=== PATIENT | female | born 1990 | race Hispanic/Latino ===

== ENCOUNTER 2017-09-24 08:00 | Outpatient (CLI) | payer SELFPAY | END 2017-09-24 08:01 | disposition home or self-care (01) | LOC: BICULT 08:00 | PROVIDERS: ATTEND Family Medicine | DX: N64.4 Mastodynia (principal) ==

== ENCOUNTER 2019-04-09 00:09 | Emergency (ER) | payer BC, SELFPAY ==
[2019-04-09] MEDS ORDERED: Metoclopramide HCl 10 MG/2 ML VIAL ONE (00:54)
[2019-04-09] MEDS ORDERED: Ketorolac Tromethamine 30 MG/ML VIAL ONE (00:54)
[2019-04-09] MEDS ORDERED: diphenhydrAMINE 50 MG/ML VIAL ONE (00:54)
--- NOTE | 2019-04-09 08:18 | CT ---
CT HEAD NONCONTRAST: Date: 04/09/19 INDICATION: Headache, new onset. FINDINGS: No evidence of ventriculomegaly, mass effect, midline shift, or acute intracranial hemorrhage. There is mild mucosal prominence of the paranasal sinuses. IMPRESSION: No acute intracranial hemorrhage or mass effect. POS: NOEMY
== END 2019-04-09 03:04 | disposition home or self-care (01) ==
LOC: ERS 00:09
DX: R51 Headache (principal)
CPT/HCPCS: 70450; 96365; 96375; J1200; J1885; J2765

== ENCOUNTER 2022-08-11 20:52 | Emergency (ER) | payer BC ==
[2022-08-11 21:26] LABS: Bilirubin Negative (Negative); Blood, Urine Negative (Negative); Clarity Clear (Clear); Glucose, Urine (Dipstick) Normal (Negative); Ketone, Urine Negative (Negative); Leukocyte Negative Leu/uL (Negative); Nitrite Negative (Negative); Protein, Urine (Dipstick) Negative (Neg-Trace); Specific Gravity, Urine 1.008 (1.002-1.036); Urobilinogen Normal mg/dL (Less than 2)
[2022-08-11 21:28] LABS: Pregnancy Test - Urine (BHCG) Negative (Negative); Pregu Control Background? CLEAR/WHITE (CLR/WHITE); Pregu Control Bar Appear? YES (CONTROL BAR); Specific Gravity 1.008 (1.002-1.036)
[2022-08-11 21:55] LABS: Hemoglobin 10.9 g/dL (12.0-16.0); Mean Corpuscular HGB CONC 33.3 g/dL (32.0-36.0); Mean Corpuscular Hemoglobin 29.4 pg (27.0-31.0); Mean Corpuscular Volume 88.1 fl (78.0-98.0); RBC Distribution Width 12.8 % (11.5-14.5); Red Blood Cell (RBC) Count 3.72 mill/uL (4.20-5.40); White Blood Cell (WBC) Count 6.5 10x3/uL (4.8-10.8)
[2022-08-11 21:56] LABS: #Eosinphils 0.1 thou/uL (0.0-0.7); #Lymphocytes 2.7 thou/uL (1.20-3.40); #Monocytes 0.4 thou/uL (0.11-0.59); #Neutrophils 3.3 thou/uL (1.40-6.50); %Basophils 0.4 % (0.0-1.0); %Eosinophils 1.1 % (0.0-10.0); %Lymphocytes 41.4 % (21.0-51.0); %Monocytes 6.8 % (0.0-10.0); %Neutrophils 50.3 % (42.0-75.0); Mean Platelet Volume 8.4 fL (7.4-10.4); Platelet Count 221 10x3/uL (130-400)
[2022-08-11 22:15] LABS: ALT (SGPT) 11 U/L (8-55); AST (SGOT) 15 U/L (5-34); Albumin 4.2 g/dL (3.5-5.0); Alkaline Phosphatase 56 U/L (40-110); Anion Gap 11 mmol/L (10-20); BUN (Urea Nitrogen) 10 mg/dL (7.0-18.7); Bilirubin, Total 1.3 mg/dL (0.2-1.2); Calc. Creatinine Clearance 0 mL/min (70-130); Carbon Dioxide 24 mmol/L (22-29); Chloride 107 mmol/L (98-107); Estimated GFR 119; Glucose 97 mg/dL (70-105); Lipase 11 U/L (8-78); Potassium 3.7 mmol/L (3.5-5.1); Protein, Total 7.2 g/dL (6.0-8.3); Sodium 138 mmol/L (136-145)
[2022-08-11] MEDS ORDERED: Ketorolac Tromethamine 30 MG/ML VIAL ONE (23:14)
== END 2022-08-12 00:01 | disposition home or self-care (01) ==
LOC: ERS 20:52
DX: R10.10 Upper abdominal pain, unspecified (principal)
CPT/HCPCS: 76705; 80053; 81003; 81025; 83690; 85025; 96374; J1885

== ENCOUNTER 2022-12-25 08:38 | Emergency (ER) | payer BC, SELFPAY ==
[2022-12-25] MEDS ORDERED: Ketorolac Tromethamine 30 MG/ML VIAL ONE (09:27)
== END 2022-12-25 09:53 | disposition home or self-care (01) ==
LOC: ERS 08:38
DX: M54.50 Low back pain, unspecified (principal)
CPT/HCPCS: 72100; 96372; J1885

== ENCOUNTER → 2024-04-19 | Day surgery (SDC) | payer BC, SELFPAY ==
[~2024-04-19] MED LIST: Ferumoxytol (NON ERSD) 510 MG in Sodium Chloride 0.9% 250 ML 150 ML IVPB SCH
[2024-04-19] MEDS: Ferumoxytol (NON ERSD) 510 MG in 0.9 % Sodium Chloride 150 ML IVPB SCH (09:14)
[2024-04-19 11:05] VITALS: BP 90/55; TEMP 98.2
== END ==
LOC: ONC/OP 08:30
PROVIDERS: ATTEND Family Medicine
DX: O99.019 Anemia complicating pregnancy, unspecified trimester (principal); Z3A.00 Weeks of gestation of pregnancy not specified
CPT/HCPCS: 96365; Q0138

== ENCOUNTER 2024-05-27 14:17 | Outpatient (CLI) | payer BC, MEDICAID | END 2024-05-27 14:18 | disposition home or self-care (01) | LOC: BICULT 14:17 | PROVIDERS: ATTEND Advanced Practice Midwife | DX: Z34.92 Encounter for supervision of normal pregnancy, unspecified, second trimester (principal); Z3A.21 21 weeks gestation of pregnancy | CPT/HCPCS: 76805 ==